=== PATIENT | male | born 1995 | race Caucasian/White ===

== ENCOUNTER 2016-10-24 13:28 | Emergency (ER) | payer SELFPAY ==
[~2016-10-24] VITALS: Ht 167.6 cm; Wt 60.0 kg
[~2016-10-24 13:28] MED LIST: AMOXICILLIN500 MG OR; AMOXICILLIN500 MG PO; CIPRO500 MG OR; DARVOCET-N 100100 MG OR; METOCLOPRAM10 MG OR; NAPROSYN500 MG OR; ULTRAM50 M1 OR
[2016-10-24] MEDS ORDERED: NAPROSYN500 MG PO (14:02)
[2016-10-24 14:10] VITALS: BP 136/77
== END 2016-10-24 14:10 | disposition home or self-care (01) | DRG 914 ==
LOC: ED 13:28
DX: S69.91XA Unspecified injury of right wrist, hand and finger(s), initial encounter (principal); X50.3XXA Overexertion from repetitive movements, initial encounter; Y93.89 Activity, other specified; Y92.89 Other specified places as the place of occurrence of the external cause

== ENCOUNTER 2019-06-22 | Emergency (ER) | payer OTHER ==
[~2019-06-22] MED LIST changes: +NAPROSYN500 MG PO
== END 2019-06-22 21:05 | disposition home or self-care (01) | DRG 605 ==
PROC: 0HQFXZZ Repair Right Hand Skin, External Approach (ICD-10-PCS; principal; 2019-06-22)
DX: S61.216A Laceration without foreign body of right little finger without damage to nail, initial encounter (principal); F17.200 Nicotine dependence, unspecified, uncomplicated; W26.0XXA Contact with knife, initial encounter; Y93.G1 Activity, food preparation and clean up; Y92.89 Other specified places as the place of occurrence of the external cause; Y99.0 Civilian activity done for income or pay

== ENCOUNTER 2020-07-23 12:51 | Emergency (ER) | payer SELFPAY ==
[~2020-07-23] VITALS: Ht 167.6 cm; Wt 57.0 kg
[2020-07-23 13:05] VITALS: BP 135/85
[2020-07-23] MEDS ORDERED: PENICILLN VK500 MG PO (13:34)
== END 2020-07-23 13:50 | disposition home or self-care (01) | DRG 158 ==
LOC: ED 12:51
DX: K02.9 Dental caries, unspecified (principal); K05.10 Chronic gingivitis, plaque induced; M84.68XA Pathological fracture in other disease, other site, initial encounter for fracture; F17.210 Nicotine dependence, cigarettes, uncomplicated